=== PATIENT | male | born 1935 ===

== ENCOUNTER 2022-02-03 12:45 | Inpatient (IN) | payer OTHER ==
[~2022-02-03] VITALS: Ht 167.6 cm; Wt 72.6 kg
--- NOTE | 2022-02-03 12:50 | NUR ---
PACIENTE LLEVA A ER EN AMBULANCIA ALERTA ORIENTADO, ENCOMPANIA DE FAMILIAR REFIERE TENER SOB, SE MONITOREAN S/V SAT DE O2 EN 90% CON CANULA, B/P MANUYAL 100/40. SE PRESENTA A DR. ROLON QUIEN ORDENA UBICAR EN AREA DE CHEST PAIN.
--- NOTE | 2022-02-03 13:17 | NUR ---
SE LLAMA A TERAPIA RESP Y SE NOTIFICA SOBRE ORDEN DE ABGS STAT.
[2022-02-03] MEDS ORDERED: ROSUVASTATIN CAL5 MG PO (13:23)
[2022-02-03] MEDS ORDERED: FUROSEMIDE20 MG PO (13:23)
[2022-02-03] MEDS ORDERED: GABAPENTIN100 M2 PO (13:23)
[2022-02-03] MEDS ORDERED: AMLODIPINE BESY10 MG PO (13:24)
[2022-02-03] MEDS ORDERED: NABUMETONE750 MG PO (13:24)
[2022-02-03] MEDS ORDERED: METOPROLOL SUCC50 MG PO (13:25)
[2022-02-03] MEDS ORDERED: HYDRALAZINE HC100 MG PO (13:25)
[2022-02-03] MEDS ORDERED: ADULT LOW DOSE81 M1 PO (13:25)
[2022-02-03] MEDS ORDERED: GLIPIZIDE ER5 MG PO (13:25)
[2022-02-03] MEDS ORDERED: METOPROLOL SUCC25 MG PO (13:26)
[2022-02-03] MEDS ORDERED: LEVOTHYROXINE50 MCG PO (13:26)
[2022-02-03] MEDS ORDERED: COZAAR50 MG PO (13:26)
--- NOTE | 2022-02-03 13:55 | NUR ---
SE REALIZA CANALIZACION Y DALE DE MUESTRAS A PACIENTE BAJO MEDIDAS ASEPTICAS Y DE SEGURIDAD. SE ORIENTA A PACIENTE ACERCA DEL CUIDADO Y TRATAMIENTO OFRECDIO EN NASIM DE EMERGENCIAS. SE MANTIENE PACIENTE EN OBSERVACION CONECTADO A MONITOR CAARDIACO Y OXIMETRIA DE PULSO.
--- NOTE | 2022-02-03 15:06 | NUR ---
SE RECIBE PACIENTE DE TURNO ANTERIOR ALERTA Y ORIENTADO X3 EN CAMA #18 CONECTADO A MONITOR CARDIACO Y OXIMETRIA DE PULSO. PTE CON H/L PATENTE Y MAYITO DE EDEMA. PACIENTE EN ESPERA DE RESULTADOS Y MUESTRA DE U/A.
--- NOTE | 2022-02-03 15:20 | NUR ---
SE NOTIFICA A PERSONAL DE TERAPIA RESPIRATORIA A CASTILLO PARA LOS ABG.
--- NOTE | 2022-02-03 17:05 | NUR ---
SE COLOCA CANULA NASAL @3L SHARIFA ORDEN MEDICA Y TERAPIA RESPIRATORIA.
[2022-02-04] MEDS ORDERED: LIOTHYRONINE S25 MCG (11:06)
[2022-02-04] MEDS ORDERED: SUCRALFATE1 GM (11:06)
[2022-02-04] MEDS ORDERED: PREDNISONE10 M2 (11:06)
[2022-02-04] MEDS ORDERED: ALENDRONATE SOD70 MG (11:06)
== END 2022-02-23 14:34 | disposition expired | DRG 190 ==
LOC: ER 12:45 → ICU-2 21:13 → ICU 21:13 → MEDI 02-13 15:58
PROVIDERS: ADMIT Internal Medicine; ATTEND Internal Medicine
PROC: BW24ZZZ Computerized Tomography (CT Scan) of Chest and Abdomen (ICD-10-PCS; 2022-02-03)
PROC: B24BZZZ Ultrasonography of Heart with Aorta (ICD-10-PCS; 2022-02-04)
PROC: 02HV33Z Insertion of Infusion Device into Superior Vena Cava, Percutaneous Approach (ICD-10-PCS; 2022-02-08)
PROC: 4A12X4Z Monitoring of Cardiac Electrical Activity, External Approach (ICD-10-PCS; 2022-02-13)
PROC: 5A09457 Assistance with Respiratory Ventilation, 24-96 Consecutive Hours, Continuous Positive Airway Pressure (ICD-10-PCS; principal; 2022-02-16)
DX: J44.1 Chronic obstructive pulmonary disease with (acute) exacerbation (principal); I46.9 Cardiac arrest, cause unspecified; I50.31 Acute diastolic (congestive) heart failure; J18.9 Pneumonia, unspecified organism; J96.11 Chronic respiratory failure with hypoxia; J96.12 Chronic respiratory failure with hypercapnia; J90 Pleural effusion, not elsewhere classified; E87.2 Acidosis; J91.8 Pleural effusion in other conditions classified elsewhere; J84.10 Pulmonary fibrosis, unspecified; I27.20 Pulmonary hypertension, unspecified; E03.8 Other specified hypothyroidism; Z20.822 Contact with and (suspected) exposure to COVID-19; I11.0 Hypertensive heart disease with heart failure